=== PATIENT | female | born 1985 | race Caucasian/White ===

== ENCOUNTER 2018-08-18 11:51 | Observation (INO) | payer MEDICAID ==
[~2018-08-18] VITALS: Ht 167.6 cm; Wt 86.2 kg
== END 2018-08-18 13:35 | disposition home or self-care (01) ==
LOC: L&D 11:51
PROVIDERS: ADMIT Obstetrics & Gynecology; ATTEND Obstetrics & Gynecology
DX: O62.9 Abnormality of forces of labor, unspecified (principal); Z3A.39 39 weeks gestation of pregnancy
CPT/HCPCS: 99281; G0378

== ENCOUNTER 2018-08-19 00:05 | Observation (INO) | payer MEDICAID ==
[~2018-08-19] VITALS: Ht 167.6 cm; Wt 86.2 kg
[2018-08-19] MEDS ORDERED: ACETAMINOPHEN 500MG TABLET PO NR (01:15)
== END 2018-08-19 01:29 | disposition home or self-care (01) ==
LOC: L&D 00:05
PROVIDERS: ADMIT Obstetrics & Gynecology; ATTEND Obstetrics & Gynecology
DX: O62.9 Abnormality of forces of labor, unspecified (principal); Z3A.39 39 weeks gestation of pregnancy
CPT/HCPCS: G0378